=== PATIENT | female | born 1970 | race Caucasian/White ===

== ENCOUNTER → 2016-03-20 | Outpatient (REF) | payer OTHER ==
[~2016-03-20] MED LIST: /AUGM875TA; /INSU7030 SC; /ONDA4TA; /ONDA4TA OR; ASPI81TA45 OR; CLAR5CHW; JANUVIA PO; LIPI20TA OR; LIPI20TA PO; LISI10TA4 OR; METF500T4 OR; PRIL20CA OR; RELPAX PO; VICO5TAB OR; [UNRECOGNIZED DRUG - REMARK]
== END ==
LOC: M LAB REF 11:19
PROVIDERS: ATTEND Physician Assistant Medical
DX: B34.9 Viral infection, unspecified (principal)

== ENCOUNTER → 2016-11-23 | Outpatient (CLI) | payer OTHER ==
--- NOTE | 2016-11-23 16:01 | REP ---
Bilateral lower extremity Duplex Doppler venous ultrasound: Real time compression and duplex Doppler interrogation of the bilateral lower extremity deep venous system is performed. Bilaterally, the common femoral, superficial femoral and popliteal veins are fully compressible with transducer pressure and demonstrate normal spontaneous and phasic flow, without evidence of deep venous thrombosis. Impression: No evidence of deep venous thrombosis of the bilateral lower extremity femoral popliteal venous system. Signed by Dakota Farley MD 11/23/2016 03:53 P
[2016-11-23 16:31] LABS: ALBUMIN 4.3 GM/DL (3.2-5.2); ALBUMIN/GLOBULIN RATIO 1.43 (1.00-1.93); ALKALINE PHOSPHATASE 83 U/L (45-117); ALT/SGPT 21 U/L (12-78); ANION GAP 5 MEQ/L (8-16); AST/SGOT 14 U/L (15-37); BILIRUBIN,TOTAL 0.3 MG/DL (0.2-1.0); BLOOD UREA NITROGEN 19 MG/DL (7-18); CARBON DIOXIDE LEVEL 31 MEQ/L (21-32); CHLORIDE LEVEL 99 MEQ/L (98-107); GLOMERULAR FILTRATION RATE > 60.0 (>58); GLUCOSE, FASTING 260 MG/DL (70-105); POTASSIUM SERUM 4.7 MEQ/L (3.5-5.1); SODIUM LEVEL 135 MEQ/L (136-145); TOTAL PROTEIN 7.3 GM/DL (6.4-8.2)
== END ==
LOC: M LAB 15:14
PROVIDERS: ATTEND Nurse Practitioner Adult Health
DX: M79.606 Pain in leg, unspecified (principal); R60.9 Edema, unspecified

== ENCOUNTER → 2017-02-11 | Outpatient (CLI) | payer OTHER ==
--- NOTE | 2017-02-11 15:35 | REP ---
Clinical: Cough . Comparison: 11/03/2010 . Technique: PA and lateral. Findings: The mediastinum and cardiac silhouette are normal. The lung castelan are clear and without acute consolidation, effusion, or pneumothorax. The skeletal structures are intact and normal. Impression: 1. No acute cardiopulmonary process. Signed by Loki Osborn MD 02/11/2017 03:26 P
== END ==
LOC: M RAD 15:09
PROVIDERS: ATTEND Physician Assistant
DX: R05 Cough (principal)

== ENCOUNTER → 2017-04-12 | Outpatient (CLI) | payer OTHER ==
[2017-04-12 08:10] LABS: ANION GAP 5 MEQ/L (8-16); BLOOD UREA NITROGEN 17 MG/DL (7-18); CALCIUM LEVEL 8.9 MG/DL (8.5-10.1); CARBON DIOXIDE LEVEL 30 MEQ/L (21-32); CHLORIDE LEVEL 103 MEQ/L (98-107); CHOLESTEROL LEVEL 179 MG/DL (<200); CHOLESTEROL RISK RATIO 2.841 (<5); CREATININE FOR GFR 0.81 MG/DL (0.55-1.30); GLOMERULAR FILTRATION RATE > 60.0 (>58); GLUCOSE, FASTING 164 MG/DL (70-100); HDL CHOLESTEROL 63 MG/DL (>40); LDL CHOLESTEROL 89.6 MG/DL (<100); NON-HDL-C 116 MG/DL; POTASSIUM SERUM 4.5 MEQ/L (3.5-5.1); SODIUM LEVEL 138 MEQ/L (136-145); TRIGLYCERIDES LEVEL 132 MG/DL (<150)
[2017-04-12 08:17] LABS: CREATININE, URINE 26.4 MG/DL; MALB URINE SIEMENS < 5.0 MG/L; MAU/CREAT RATIO 18.9 MCG/MG (0.0-30.0)
== END ==
LOC: M LAB 07:01
DX: E78.2 Mixed hyperlipidemia (principal); E10.65 Type 1 diabetes mellitus with hyperglycemia
CPT/HCPCS: 80061

== ENCOUNTER 2018-04-01 16:14 | Emergency (ER) | payer OTHER ==
[~2018-04-01] VITALS: Ht 162.6 cm; Wt 68.2 kg
[2018-04-01] MEDS ORDERED: ADME100I (16:37)
[2018-04-01] MEDS ORDERED: ACETAMINOPHEN 325 MG TAB PO ONE (18:45)
[2018-04-01] MEDS ORDERED: KETOROLAC TROMETHAMINE 10 MG TAB PO ONE (18:45)
[2018-04-01] MEDS ORDERED: KETO10TAB PO (18:46)
[2018-04-01 19:00] VITALS: BP 128/67
--- NOTE | 2018-04-02 10:59 | REP ---
LEFT KNEE SERIES, FIVE VIEWS: There is no evidence of an acute fracture, dislocation or intrinsic bone disease. IMPRESSION: No fracture or dislocation. Electronically Signed by Dakota Farley MD 04/02/2018 10:53 P
== END 2018-04-01 19:01 | disposition home or self-care (01) ==
LOC: M ED 16:14
DX: S83.8X2A Sprain of other specified parts of left knee, initial encounter (principal); W00.9XXA Unspecified fall due to ice and snow, initial encounter; Y92.89 Other specified places as the place of occurrence of the external cause; E11.9 Type 2 diabetes mellitus without complications; Z79.4 Long term (current) use of insulin; I10 Essential (primary) hypertension; F41.9 Anxiety disorder, unspecified; Z88.1 Allergy status to other antibiotic agents

== ENCOUNTER → 2018-10-18 | Outpatient (CLI) | payer OTHER ==
[~2018-10-18] MED LIST changes: -/INSU7030 SC; -/ONDA4TA; -/ONDA4TA OR; +ADME100I; +KETO10TAB PO; +NOVO1INJ4 SC; +ONDA-1; +ONDA-1 OR
--- NOTE | 2018-10-18 11:13 | REPMRS ---
Patient History The patient states she has not had a clinical breast exam in over a year. Patient is postmenopausal. Family history of breast cancer under age 50 in paternal grandmother, premenopausal ovarian cancer under age 50 in mother. Took hormonal contraceptives for 15 years. Digital Woman Screen Mammo: October 18, 2018 - Exam #: [id number] Bilateral CC and MLO view(s) were taken. Technologist: Eileen Freire Technologist Prior study comparison: March 09, 2015, bilateral digital mammo screening bilat, performed at [facility]. April 19, 2011, digital woman screen mammo performed at [facility]. May 22, 2008, bilateral bilat screen digital mammo performed at [facility]. FINDINGS: The breast tissue is heterogeneously dense. This may lower the sensitivity of mammography. There is a moderate amount of heterogeneously dense fibroglandular tissue which is fairly symmetric. There is no interval development of dominant mass, architectural distortion, or grouped microcalcification typical of malignancy. There has been no change in the appearance of the mammogram from the prior studies. 3-D tomosynthesis shows no additional findings. Assessment: BI-RADS/ACR category 1 mammogram. Negative Mammogram. Recommendation Routine screening mammogram of both breasts in 1 year (for women over age 40). This patient's Lifetime Breast Cancer RIsk is estimated at 11.7 %. This mammogram was interpreted with the aid of an FDA-approved computer-aided dectection system. Electronically Signed By: Chau Meyer MD 10/18/18 [id number]
== END ==
LOC: M WHC 07:48
PROVIDERS: ATTEND Internal Medicine
DX: Z12.31 Encounter for screening mammogram for malignant neoplasm of breast (principal)

== ENCOUNTER → 2019-01-12 | Outpatient (CLI) | payer OTHER ==
[2019-01-12 08:25] LABS: HEMOGLOBIN A1c 8.1 %
[2019-01-12 08:34] LABS: ALBUMIN 3.9 GM/DL (3.2-5.2); ALT/SGPT 46 U/L (12-78); BILIRUBIN,TOTAL 0.3 MG/DL (0.2-1.0); BLOOD UREA NITROGEN 15 MG/DL (7-18); CALCIUM LEVEL 9.2 MG/DL (8.5-10.1); CARBON DIOXIDE LEVEL 29 MEQ/L (21-32); CHLORIDE LEVEL 107 MEQ/L (98-107); CHOLESTEROL LEVEL 166 MG/DL (<200); CHOLESTEROL RISK RATIO 2.371 (<5); CREATININE FOR GFR 0.92 MG/DL (0.55-1.30); GLOMERULAR FILTRATION RATE > 60.0 (>51); GLUCOSE, FASTING 146 MG/DL (70-100); HDL CHOLESTEROL 70 MG/DL (>40); LDL CHOLESTEROL 79 MG/DL (<100); NON-HDL-C 96 MG/DL; POTASSIUM SERUM 4.5 MEQ/L (3.5-5.1); SODIUM LEVEL 140 MEQ/L (136-145); TOTAL PROTEIN 7.1 GM/DL (6.4-8.2); TRIGLYCERIDES LEVEL 86 MG/DL (<150)
== END ==
LOC: M LAB 07:27
PROVIDERS: ATTEND Internal Medicine
DX: E10.9 Type 1 diabetes mellitus without complications (principal); I10 Essential (primary) hypertension

== ENCOUNTER → 2019-01-24 | Outpatient (REF) | payer OTHER, MEDICAID ==
[~2019-01-24] MED LIST changes: +ATOR1TAB21
== END ==
LOC: M PLALAB 14:33
PROVIDERS: ATTEND Nurse Practitioner Women's Health
DX: Z12.4 Encounter for screening for malignant neoplasm of cervix (principal)

== ENCOUNTER 2019-01-28 08:32 | Emergency (ER) | payer OTHER ==
[~2019-01-28] VITALS: Ht 165.1 cm; Wt 66.4 kg
[~2019-01-28 08:32] MED LIST changes: -ATOR1TAB21
[2019-01-28] MEDS ORDERED: ATOR1TAB21 (08:38)
[2019-01-28] MEDS ORDERED: ADACEL/BOOSTRIX VACCINE (DIPHTH/PERTUSS/ACELL/TETANUS)0.5ML SYR (90715) IM ONE (09:15)
[2019-01-28] MEDS ORDERED: LIDOCAINE 1% MDV 20ML VIAL INFIL ONE (09:15)
[2019-01-28] MEDS ORDERED: DERMABOND TOPICAL SKIN ADHESIVE TOP ONE (10:00)
[2019-01-28 10:31] VITALS: BP 148/86
== END 2019-01-28 10:35 | disposition home or self-care (01) ==
LOC: M ED 08:32
DX: S61.313A Laceration without foreign body of left middle finger with damage to nail, initial encounter (principal); W26.8XXA Contact with other sharp object(s), not elsewhere classified, initial encounter; Y92.89 Other specified places as the place of occurrence of the external cause; Y93.9 Activity, unspecified; Y99.0 Civilian activity done for income or pay; E11.9 Type 2 diabetes mellitus without complications; I10 Essential (primary) hypertension; E78.5 Hyperlipidemia, unspecified; Z79.4 Long term (current) use of insulin; Z79.899 Other long term (current) drug therapy; Z88.1 Allergy status to other antibiotic agents; Z88.8 Allergy status to other drugs, medicaments and biological substances

== ENCOUNTER → 2020-04-29 | Outpatient (CLI) | payer OTHER ==
[~2020-04-29] MED LIST changes: +ATOR1TAB21
[2020-04-29 08:58] LABS: ALBUMIN 4.1 GM/DL (3.2-5.2); ALT/SGPT 21 U/L (12-78); BILIRUBIN,TOTAL 0.3 MG/DL (0.2-1.0); BLOOD UREA NITROGEN 17 MG/DL (7-18); CALCIUM LEVEL 9.3 MG/DL (8.5-10.1); CARBON DIOXIDE LEVEL 30 MEQ/L (21-32); CHLORIDE LEVEL 105 MEQ/L (98-107); CHOLESTEROL LEVEL 249 MG/DL (<200); CHOLESTEROL RISK RATIO 4.368 (<5); GLOMERULAR FILTRATION RATE > 60.0 (>51); GLUCOSE, FASTING 100 MG/DL (70-100); HDL CHOLESTEROL 57 MG/DL (>40); LDL CHOLESTEROL 157 MG/DL (<100); NON-HDL-C 192 MG/DL; POTASSIUM SERUM 4.4 MEQ/L (3.5-5.1); SODIUM LEVEL 140 MEQ/L (136-145); TOTAL PROTEIN 6.9 GM/DL (6.4-8.2); TRIGLYCERIDES LEVEL 173 MG/DL (<150)
[2020-04-29 12:58] LABS: CREATININE, URINE 77.9 MG/DL; MALB URINE SIEMENS 11.3 MG/L; MAU/CREAT RATIO 14.5 MCG/MG (0.0-30.0)
== END ==
LOC: M LAB 06:52
PROVIDERS: ATTEND Nurse Practitioner Family
DX: E10.65 Type 1 diabetes mellitus with hyperglycemia (principal); E78.2 Mixed hyperlipidemia

== ENCOUNTER → 2021-02-24 | Outpatient (CLI) | payer OTHER ==
--- NOTE | 2021-02-24 09:47 | REP ---
INDICATION: SHORTNESS OF BREATH COMPARISON: None. TECHNIQUE: PA and lateral. FINDINGS: The mediastinum and cardiac silhouette are normal. The lung castelan are clear and without acute consolidation, effusion, or pneumothorax. The skeletal structures are intact and normal. IMPRESSION: No acute cardiopulmonary process. <Electronically signed by Loki Osborn > 02/24/21 0928
[2021-02-24 10:25] LABS: BASO % 0.4 % (0.0-1.0); EOS # 0.2 10^3/uL (0.0-0.5); EOS % 2.6 % (0.0-3.0); HEMATOCRIT 39.2 % (36.0-47.0); LYMPH # 2.6 10^3/uL (1.5-5.0); LYMPH % 34.1 % (24.0-44.0); MEAN CORPUSCULAR HEMOGLOBIN 29.3 pg (27.0-33.0); MEAN CORPUSCULAR HGB CONC 33.2 g/dl (32.0-36.5); MEAN CORPUSCULAR VOLUME 88.5 fl (80.0-96.0); MONO # 0.9 10^3/uL (0.0-0.8); MONO % 12.1 % (2.0-8.0); NEUTROPHILS # 3.8 10^3/uL (1.5-8.5); NEUTROPHILS % 50.1 % (36.0-66.0); PLATELET COUNT, AUTOMATED 300 10^3/uL (150-450); RED BLOOD COUNT 4.43 10^6/uL (4.00-5.40); WHITE BLOOD COUNT 7.6 10^3/uL (4.0-10.0)
[2021-02-24 10:52] LABS: ALT/SGPT 33 U/L (12-78); BILIRUBIN,TOTAL 0.3 MG/DL (0.2-1.0); BLOOD UREA NITROGEN 13 MG/DL (7-18); CARBON DIOXIDE LEVEL 31 MEQ/L (21-32); CHLORIDE LEVEL 98 MEQ/L (98-107); CREATININE FOR GFR 0.91 MG/DL (0.55-1.30); GLOMERULAR FILTRATION RATE > 60.0 (>51); GLUCOSE, FASTING 266 MG/DL (70-100); POTASSIUM SERUM 4.3 MEQ/L (3.5-5.1); SODIUM LEVEL 136 MEQ/L (136-145); TOTAL PROTEIN 7.6 GM/DL (6.4-8.2)
[2021-02-24 12:28] LABS: RSV AMPLIFICATION NEGATIVE (NEGATIVE)
== END ==
LOC: M WUC 09:29
PROVIDERS: ATTEND Physician Assistant
DX: R06.02 Shortness of breath (principal); R68.83 Chills (without fever)

== ENCOUNTER 2021-06-11 09:41 | Emergency (ER) | payer OTHER ==
[~2021-06-11] VITALS: Ht 165.1 cm; Wt 68.9 kg
[2021-06-11] MEDS ORDERED: ATOR40TA75 PO (11:49)
[2021-06-11] MEDS ORDERED: LISI5TAB11 PO (11:49)
[2021-06-11] MEDS ORDERED: NEUR300C PO (12:35)
[2021-06-11] MEDS ORDERED: DOXY100C3 PO (12:35)
[2021-06-11 12:40] VITALS: BP 132/78
== END 2021-06-11 12:54 | disposition home or self-care (01) ==
LOC: M ED 09:41
DX: L03.012 Cellulitis of left finger (principal); S64.492A Injury of digital nerve of right middle finger, initial encounter; X58.XXXA Exposure to other specified factors, initial encounter; Y92.89 Other specified places as the place of occurrence of the external cause; Y93.9 Activity, unspecified; Y99.0 Civilian activity done for income or pay; E11.9 Type 2 diabetes mellitus without complications; G43.909 Migraine, unspecified, not intractable, without status migrainosus; F41.9 Anxiety disorder, unspecified; Z96.41 Presence of insulin pump (external) (internal); Z79.4 Long term (current) use of insulin; Z88.8 Allergy status to other drugs, medicaments and biological substances

== ENCOUNTER → 2021-11-15 | Outpatient (CLI) | payer OTHER ==
[~2021-11-15] MED LIST changes: +ATOR40TA75 PO; +BACI500O8 TOP; +DOXY100C3 PO; +LISI5TAB11 PO; +NEUR300C PO
[2021-11-15 16:16] LABS: APPEARANCE, URINE MANUAL CLEAR (CLEAR); BILIRUBIN, URINE MANUAL NEGATIVE (NEGATIVE); COLOR, URINE MANUAL YELLOW (YELLOW); GLUCOSE, URINE (UA) MANUAL NEGATIVE (NEGATIVE); KETONE, URINE MANUAL NEGATIVE (NEGATIVE); LEUKOCYTE ESTERASE, URINE MAN NEGATIVE (NEGATIVE); NITRITE, URINE MANUAL NEGATIVE (NEGATIVE); PROTEIN, URINE MANUAL NEGATIVE (NEGATIVE); UROBILINOGEN, URINE MANUAL NORMAL (NORMAL)
[2021-11-15 16:17] LABS: BLOOD URINE MANUAL TRACE (NEGATIVE)
[2021-11-15 16:27] LABS: BACTERIA, URINE MOD AMOUNT; SQUAMOUS EPITHELIAL CELL URINE SMALL AMOUNT /hpf (SMALL AMT)
[2021-11-15 17:29] LABS: ALBUMIN 4.4 GM/DL (3.2-5.2); ALT/SGPT 21 U/L (12-78); BILIRUBIN,TOTAL 0.3 MG/DL (0.2-1.0); BLOOD UREA NITROGEN 14 MG/DL (7-18); CARBON DIOXIDE LEVEL 28 MEQ/L (21-32); CHLORIDE LEVEL 104 MEQ/L (98-107); CHOLESTEROL LEVEL 254 MG/DL (<200); CHOLESTEROL RISK RATIO 4.096 (<5); CREATININE FOR GFR 0.87 MG/DL (0.55-1.30); GLOMERULAR FILTRATION RATE > 60.0 (>51); GLUCOSE, FASTING 100 MG/DL (70-100); HDL CHOLESTEROL 62 MG/DL (>40); LDL CHOLESTEROL 144 MG/DL (<100); NON-HDL-C 192 MG/DL; POTASSIUM SERUM 3.7 MEQ/L (3.5-5.1); SODIUM LEVEL 138 MEQ/L (136-145); TOTAL PROTEIN 7.5 GM/DL (6.4-8.2); TRIGLYCERIDES LEVEL 239 MG/DL (<150)
[2021-11-15 18:18] LABS: HEMOGLOBIN A1c 7.2 %
== END ==
LOC: M WUC 13:44
PROVIDERS: ATTEND Internal Medicine
DX: E78.5 Hyperlipidemia, unspecified (principal); E10.9 Type 1 diabetes mellitus without complications

== ENCOUNTER 2021-11-16 07:19 | Emergency (ER) | payer OTHER ==
[~2021-11-16] VITALS: Ht 165.1 cm; Wt 65.0 kg
[2021-11-16 07:19] VITALS: BP 131/81
[~2021-11-16 07:19] MED LIST changes: -BACI500O8 TOP
[2021-11-16] MEDS ORDERED: BACI500O8 TOP (07:58)
== END 2021-11-16 08:52 | disposition home or self-care (01) ==
LOC: M ED 07:19
DX: S61.210A Laceration without foreign body of right index finger without damage to nail, initial encounter (principal); W26.8XXA Contact with other sharp object(s), not elsewhere classified, initial encounter; Y99.0 Civilian activity done for income or pay; E10.9 Type 1 diabetes mellitus without complications; I10 Essential (primary) hypertension; E78.5 Hyperlipidemia, unspecified; Z79.899 Other long term (current) drug therapy; Z88.8 Allergy status to other drugs, medicaments and biological substances

== ENCOUNTER → 2022-05-09 | Outpatient (REF) | payer OTHER ==
[~2022-05-09] MED LIST changes: +BACI500O8 TOP
== END ==
LOC: M LAB REF 16:13
PROVIDERS: ATTEND Nurse Practitioner Family
DX: R05.9 Cough, unspecified (principal); J06.9 Acute upper respiratory infection, unspecified

== ENCOUNTER → 2022-06-24 | Outpatient (CLI) | payer OTHER | LOC: M WUC 14:27 | PROVIDERS: ATTEND Nurse Practitioner Family | DX: R07.82 Intercostal pain (principal) ==

== ENCOUNTER → 2022-09-06 | Outpatient (CLI) | payer OTHER ==
[2022-09-06 08:58] LABS: ALBUMIN 4.6 G/DL (3.2-5.2); ALKALINE PHOSPHATASE 83 U/L (46-116); ALT/SGPT 18 U/L (7.0-40); AST/SGOT 12 U/L (<34); BILIRUBIN,TOTAL 0.7 MG/DL (0.3-1.2); BLOOD UREA NITROGEN 18 MG/DL (9-23); CARBON DIOXIDE LEVEL 27 MMOL/L (20-31); CHLORIDE LEVEL 102 MMOL/L (98-107); CHOLESTEROL LEVEL 184 MG/DL (<200); CHOLESTEROL RISK RATIO 2.97 (<5); CREATININE FOR GFR 0.78 MG/DL (0.55-1.30); GLOMERULAR FILTRATION RATE > 60.0 (>51); GLUCOSE, FASTING 115 MG/DL (60-100); HDL CHOLESTEROL 61.9 MG/DL (>40); LDL CHOLESTEROL 94.5 MG/DL (<100); NON-HDL-C 122.1 MG/DL; POTASSIUM SERUM 4.9 MMOL/L (3.5-5.1); SODIUM LEVEL 139 MMOL/L (136-145); TOTAL PROTEIN 7.5 G/DL (5.7-8.2); TRIGLYCERIDES LEVEL 138 MG/DL (<150)
[2022-09-06 09:04] LABS: HEMOGLOBIN A1c 7.2 % (4.0-6.0)
== END ==
LOC: M LAB 07:54
PROVIDERS: ATTEND Internal Medicine
DX: E78.5 Hyperlipidemia, unspecified (principal); E10.9 Type 1 diabetes mellitus without complications

== ENCOUNTER → 2023-02-28 | Outpatient (CLI) | payer OTHER, MEDICAID | LOC: M WUC 15:03 | PROVIDERS: ATTEND Internal Medicine | DX: J18.9 Pneumonia, unspecified organism (principal) ==

== ENCOUNTER → 2023-08-06 | Outpatient (REF) | payer OTHER | LOC: M LAB REF 16:49 | PROVIDERS: ATTEND Registered Nurse | DX: J02.9 Acute pharyngitis, unspecified (principal) ==

== ENCOUNTER → 2023-11-18 | Outpatient (CLI) | payer OTHER ==
[2023-11-18 10:38] LABS: ALBUMIN 4.5 G/DL (3.2-5.2); ALKALINE PHOSPHATASE 76 U/L (46-116); ALT/SGPT 17 U/L (7.0-40); AST/SGOT 13 U/L (<34); BILIRUBIN,TOTAL 0.5 MG/DL (0.3-1.2); BLOOD UREA NITROGEN 19 MG/DL (9-23); CALCIUM LEVEL 10.2 MG/DL (8.5-10.1); CARBON DIOXIDE LEVEL 32 MMOL/L (20-31); CHLORIDE LEVEL 106 MMOL/L (98-107); CHOLESTEROL LEVEL 155 MG/DL (<200); CREATININE FOR GFR 0.87 MG/DL (0.55-1.30); GLOMERULAR FILTRATION RATE > 60.0 (>51); GLUCOSE, FASTING 73 MG/DL (60-100); POTASSIUM SERUM 4.6 MMOL/L (3.5-5.1); SODIUM LEVEL 141 MMOL/L (136-145); TOTAL PROTEIN 7.1 G/DL (5.7-8.2); TRIGLYCERIDES LEVEL 97 MG/DL (<150)
[2023-11-18 11:14] LABS: HEMOGLOBIN A1c 6.6 % (4.0-6.0)
[2023-11-18 12:52] LABS: CHOLESTEROL RISK RATIO 3.44 (<5); LDL CHOLESTEROL 90.6 MG/DL (<100)
== END ==
LOC: M LAB 08:25
PROVIDERS: ATTEND Internal Medicine
DX: E78.5 Hyperlipidemia, unspecified (principal); E10.9 Type 1 diabetes mellitus without complications

== ENCOUNTER → 2023-11-18 | Outpatient (CLI) | payer OTHER ==
[2023-11-18 10:37] LABS: ALBUMIN 4.4 G/DL (3.2-5.2); BILIRUBIN,DIRECT 0.2 MG/DL (<0.4); BILIRUBIN,TOTAL 0.5 MG/DL (0.3-1.2); TOTAL PROTEIN 7.1 G/DL (5.7-8.2)
[2023-11-18 12:53] LABS: CHOLESTEROL RISK RATIO 3.22 (<5); HDL CHOLESTEROL 48.4 MG/DL (>40); LDL CHOLESTEROL 89.4 MG/DL (<100); NON-HDL-C 107.6 MG/DL
== END ==
LOC: M LAB 08:29
PROVIDERS: ATTEND Internal Medicine Interventional Cardiology
DX: I10 Essential (primary) hypertension (principal); E78.49 Other hyperlipidemia; E11.9 Type 2 diabetes mellitus without complications; R06.02 Shortness of breath

== ENCOUNTER → 2024-12-13 | Outpatient (CLI) | payer OTHER | LOC: M WUC 10:28 | PROVIDERS: ATTEND Nurse Practitioner Family | DX: R05.9 Cough, unspecified (principal) ==